=== PATIENT | female | born 1950 | race Caucasian/White ===

== ENCOUNTER 2021-07-27 14:42 | Inpatient (IN) | payer MEDICARE ==
[~2021-07-27] VITALS: Ht 163 cm; Wt 56.0 kg
[2021-07-27] MEDS ORDERED: CORGARD40 MG PO (20:35)
[2021-07-27] MEDS ORDERED: CRESTOR10 MG PO (20:36)
[2021-07-27 21:43] LABS: BASOPHIL 0.3 % (0-2); EOSINOPHIL 0.2 % (0-7); HCT 41.8 % (37.0-47.0); HGB 14.1 g/dl (12.5-16.0); LYMPHOCYTE 19.4 % (15-48); MCH 32.4 pg (25.0-31.0); MCHC 33.7 g/dL (32.0-36.0); MCV 96.1 fL (78.0-100.0); MONOCYTE 8.2 % (0-12); MPV 9.1 fL (6.0-9.5); NEUTROPHIL 71.4 % (41-80); NRBC 0; PLT 298 K/uL (150-400); RBC 4.35 M/uL (4.20-5.40); RDW 13.3 % (11.5-14.0); WBC 12.4 K/uL (4.0-10.5)
[2021-07-27 21:54] LABS: INR 1.11 (0.9-1.2); PROTHROMBIN TIME 13.7 SECONDS (11.8-13.4)
[2021-07-27 22:09] LABS: ALBUMIN 2.9 g/dL (3.4-5.0); BILIRUBIN - TOTAL 0.6 mg/dL (0.2-1.0); BUN/CREAT RATIO (CALC) 27.7 RATIO; CREATININE 0.47 mg/dL (0.51-0.95); GLOBULIN (CALCULATION) 4.1 g/dL; POTASSIUM 3.9 mmol/L (3.5-5.1)
[2021-07-28 00:47] LABS: BILIRUBIN NEGATIVE (NEGATIVE); BLOOD NEGATIVE Ery/uL (NEGATIVE); CLARITY CLEAR (CLEAR); COLOR YELLOW (YELLOW); GLUCOSE (U) NORMAL (NORMAL); LEUKOCYTES NEGATIVE Leu/uL (NEGATIVE); NITRITE NEGATIVE (NEGATIVE); PROTEIN NEGATIVE (NEGATIVE); SPECIFIC GRAVITY 1.025 (1.001-1.030); UROBILINOGEN 0.2 mg/dL (0.2-1.0)
[2021-07-28 00:55] LABS: BACTERIA TRACE; RENAL EPITHELIAL CELLS RARE; URINARY WBC RARE
[2021-07-29 04:00] LABS: HCT 31.1 % (37.0-47.0); HGB 10.2 g/dl (12.5-16.0); MCH 32.2 pg (25.0-31.0); MCHC 32.8 g/dL (32.0-36.0); MCV 98.1 fL (78.0-100.0); MPV 9.8 fL (6.0-9.5); RBC 3.17 M/uL (4.20-5.40); RDW 13.4 % (11.5-14.0); WBC 14.9 K/uL (4.0-10.5)
[2021-07-29 09:06] LABS: HBSAG SCREEN Negative (Negative); HEP A AB, IGM Negative (Negative); HEP B CORE AB, IGM Negative (Negative); HEP C VIRUS AB <0.1 (0.0-0.9)
[2021-07-30 06:12] LABS: BASOPHIL 0.2 % (0-2); EOSINOPHIL 0.9 % (0-7); HCT 30.2 % (37.0-47.0); HGB 9.7 g/dl (12.5-16.0); LYMPHOCYTE 14.6 % (15-48); MCHC 32.1 g/dL (32.0-36.0); MCV 99.7 fL (78.0-100.0); MPV 9.6 fL (6.0-9.5); NEUTROPHIL 75.8 % (41-80); NRBC 0; PLT 223 K/uL (150-400); RBC 3.03 M/uL (4.20-5.40); RDW 13.3 % (11.5-14.0); WBC 15.5 K/uL (4.0-10.5)
[2021-07-30 06:24] LABS: BUN/CREAT RATIO (CALC) 28.9 RATIO; CREATININE 0.45 mg/dL (0.51-0.95)
[2021-07-30] MEDS ORDERED: XARELTO10 MG PO (10:22)
[2021-07-30] MEDS ORDERED: DULCOLAX5 MG PO (10:22)
[2021-07-30] MEDS ORDERED: LASIX20 MG PO (11:28)
[2021-07-30] MEDS ORDERED: PERCOCET 5-3251 EACH PO ×2 (15:04→18:40)
== END 2021-07-30 15:28 | disposition home health service (06) | DRG 522 ==
LOC: FER 14:42 → FMS 19:27
PROVIDERS: Nurse Practitioner; Orthopaedic Surgery; ADMIT Allergy & Immunology Allergy
PROC: 0SR904A Replacement of Right Hip Joint with Ceramic on Polyethylene Synthetic Substitute, Uncemented, Open Approach (ICD-10-PCS; principal; 2021-07-28 11:30)
DX: S72.001A Fracture of unspecified part of neck of right femur, initial encounter for closed fracture (principal); I10 Essential (primary) hypertension; Z20.822 Contact with and (suspected) exposure to COVID-19; E78.5 Hyperlipidemia, unspecified; F17.210 Nicotine dependence, cigarettes, uncomplicated; G47.00 Insomnia, unspecified; I95.9 Hypotension, unspecified; I65.23 Occlusion and stenosis of bilateral carotid arteries; Z90.49 Acquired absence of other specified parts of digestive tract; Z90.710 Acquired absence of both cervix and uterus; Z98.890 Other specified postprocedural states; Z91.038 Other insect allergy status; W18.30XA Fall on same level, unspecified, initial encounter; Y92.009 Unspecified place in unspecified non-institutional (private) residence as the place of occurrence of the external cause; Z79.899 Other long term (current) drug therapy
CPT/HCPCS: 36415; 71045; 71046; 73501; 73502; 73560; 76000; 80048; 80053; 80061; 80074; 81001; 83880; 84443; 84484; 85025; 85610; 85730; 93005; 93880; 94010; 94667; 94760; 94762; 97110; 97116; 97162; 97166; 97530-GP; 97535; C1776; J0171; J0360; J0697; J1170; J1650; J1885; J2250; J2270; J2370; J2704; J2795; J3010; J7120; U0002